=== PATIENT | female | born 1955 | race Caucasian/White ===

== ENCOUNTER → 2017-08-04 | Outpatient (CLI) | payer BC ==
--- NOTE | 2017-08-05 11:00 | MM ---
Reason for exam: screening (asymptomatic). Last mammogram was performed 2 years and 1 month ago. History: Patient is postmenopausal and had first child at age 32. Physical Findings: A clinical breast exam by your physician is recommended on an annual basis and results should be correlated with mammographic findings. MG Screening Mammo w CAD Bilateral CC and MLO view(s) were taken. Prior study comparison: June 25, 2015, mammogram, performed at [facility]. June 15, 2013, mammogram, performed at [facility]. The breast tissue is heterogeneously dense. This may lower the sensitivity of mammography. There is chronic nodularity bilaterally. There is no dominant lesion. No significant changes when compared with prior studies. ASSESSMENT: Benign, BI-RAD 2 RECOMMENDATION: Routine screening mammogram of both breasts in 1 year.
== END | disposition home or self-care (01) ==
LOC: RADMAMWWP 11:54
PROVIDERS: ATTEND Family Medicine
DX: Z12.31 Encounter for screening mammogram for malignant neoplasm of breast (principal)

== ENCOUNTER 2017-08-17 12:12 | Emergency (ER) | payer BC ==
[2017-08-17 12:26] VITALS: RESP 18
[2017-08-17] MEDS ORDERED: SODIUM CHLORIDE 0.9% 1,000 ML IV STA (13:23)
[2017-08-17] MEDS ORDERED: RX INFO: IV CONTRAST WAS GIVEN 1 EACH MISC MISCELLANE PRN (13:23)
--- NOTE | 2017-08-17 13:25 | ED ---
General Adult HPI - General Chief complaint: Abdominal Pain Stated complaint: Abd Pain-Diverticulitis Time Seen by Provider: 08/17/17 13:15 Source: patient, RN notes reviewed Mode of arrival: ambulatory Limitations: no limitations - History of Present Illness Initial comments: Patient 62-year-old female significant past medical history for diverticulitis, who presents emergency room today with a chief complaint of lower abdominal pain over the last 2 weeks. She does admit to increased fullness and bloating. Currently rates pain 6/10. States does feel somewhat similar diverticulitis that she's had in the past. She admits to a surgery for the diverticulitis approximate 10 years ago at [facility]. She denies any other complaints or symptoms at this time. States she's had small bowel movements. States she's been passing small amount of gas. Patient denies any recent fever, chills, shortness of breath, chest pain, back pain, abdominal pain, nausea or vomiting, numbness or tingling, dysuria or hematuria, constipation or diarrhea, headaches or visual changes, or any other complaints. - Related Data Home Medications Medication Instructions Recorded Confirmed Venlafaxine HCl ER [Effexor Xr] 150 mg PO DAILY 10/10/16 08/17/17 Cholecalciferol (Vitamin D3) 2,000 unit PO DAILY 08/17/17 08/17/17 [Vitamin D3] buPROPion HCL [Wellbutrin XL] 150 mg PO DAILY 08/17/17 08/17/17 Previous Rx's Medication Instructions Recorded Lactulose 10 gm PO DAILY 5 Days 08/17/17 Allergies Allergy/AdvReac Type Severity Reaction Status Date / Time erythromycin base Allergy Unknown Verified 08/17/17 12:53 minocycline [From Minocin] Allergy Unknown Verified 08/17/17 12:53 ofloxacin [From Floxin] Allergy Unknown Verified 08/17/17 12:53 Review of Systems ROS Statement: Those systems with pertinent positive or pertinent negative responses have been documented in the HPI. ROS Other: All systems not noted in ROS Statement are negative. Past Medical History Past Medical History: Sleep Apnea/CPAP/BIPAP Additional Past Medical History / Comment(s): Mitral regurgitation, diverticulitis, uses medical marijuana History of Any Multi-Drug Resistant Organisms: None Reported Past Surgical History: Bowel Resection, Cholecystectomy, Tonsillectomy Additional Past Surgical History / Comment(s): hernia repair, trigger thumb repair, deviated septum Past Psychological History: Depression Smoking Status: Never smoker Past Alcohol Use History: None Reported Past Drug Use History: Unable to Obtain, Marijuana General Exam - General Exam Comments Initial Comments: General: The patient is awake and alert, in no distress, and does not appear acutely ill. Eye: Pupils are equal, round and reactive to light, extra-ocular movements are intact. No nystagmus. There is normal conjunctiva bilaterally. No signs of icterus. Ears, nose, mouth and throat: There are moist mucous membranes and no oral lesions. Neck: The neck is supple, there is no tenderness or JVD. Cardiovascular: There is a regular rate and rhythm. No murmur, rub or gallop is appreciated. Respiratory: Lungs are clear to auscultation, respirations are non-labored, breath sounds are equal. No wheezes, stridor, rales, or rhonchi. Gastrointestinal: Normal appearance abdomen. Normal bowel sounds. Soft on palpation. Patient does have tenderness mildly throughout the abdomen. No rebound tenderness. No Guarding. No CVA tenderness. Musculoskeletal: Normal ROM, no tenderness. Strength 5/5. Sensation intact. Pulses equal bilaterally 2+. Neurological: A&O x 3. CN II-XII intact, There are no obvious motor or sensory deficits. Coordination appears grossly intact. Speech is normal. Skin: Skin is warm and dry and no rashes or lesions are noted. Psychiatric: Cooperative, appropriate mood & affect, normal judgment. Limitations: no limitations Course Vital Signs 08/17/17 08/17/17 12:23 13:25 Temperature 98.4 F Pulse Rate 88 77 Respiratory 18 18 Rate Blood Pressure 123/83 135/68 O2 Sat by Pulse 98 98 Oximetry Medical Decision Making - Medical Decision Making Case discussed in detail with attending physician Dr. Gore. Patient reexamined at this time shows no signs of distress resting comfortably. Doesn' t patient about starting antibiotics cover possible infection. At this time she states that she would like to hold. We will place patient on laxative to help with some discomfort with bowel movements. Patient given magnesium citrate here in emergency room discharged home with lactulose use if needed. Advised to follow-up the family doctor also her surgeon and will also be given GI as possible follow-up over the next 2 days. Advised return for fever or increase worsen symptoms. Patient states understanding and is in agreement. - Lab Data Result diagrams: 08/17/17 13:09 08/17/17 13:09 Lab Results 08/17/17 08/17/17 08/17/17 Range/Units 13:09 13:09 13:09 WBC 7.0 (3.8-10.6) k/uL RBC 4.29 (3.80-5.40) m/uL Hgb 13.5 (11.4-16.0) gm/dL Hct 42.1 (34.0-46.0) % MCV 98.0 (80.0-100.0) fL MCH 31.4 (25.0-35.0) pg MCHC 32.1 (31.0-37.0) g/dL RDW 13.7 (11.5-15.5) % Plt Count 253 (150-450) k/uL Neutrophils % 54 % Lymphocytes % 33 % Monocytes % 6 % Eosinophils % 2 % Basophils % 1 % Neutrophils # 3.8 (1.3-7.7) k/uL Lymphocytes # 2.3 (1.0-4.8) k/uL Monocytes # 0.4 (0-1.0) k/uL Eosinophils # 0.2 (0-0.7) k/uL Basophils # 0.1 (0-0.2) k/uL PT 9.8 (9.0-12.0) sec INR 1.0 (<1.2) APTT 25.9 (22.0-30.0) sec Sodium 140 (137-145) mmol/L Potassium 4.7 (3.5-5.1) mmol/L Chloride 106 (98-107) mmol/L Carbon Dioxide 25 (22-30) mmol/L Anion Gap 9 mmol/L BUN 15 (7-17) mg/dL Creatinine 0.70 (0.52-1.04) mg/dL Est GFR (MDRD) Af Amer >60 (>60 ml/min/1.73 sqM) Est GFR (MDRD) Non-Af >60 (>60 ml/min/1.73 sqM) Glucose 85 (74-99) mg/dL Calcium 9.7 (8.4-10.2) mg/dL Total Bilirubin 0.8 (0.2-1.3) mg/dL AST 28 (14-36) U/L ALT 48 (9-52) U/L Alkaline Phosphatase 131 H (38-126) U/L Total Protein 7.0 (6.3-8.2) g/dL Albumin 4.3 (3.5-5.0) g/dL Disposition Clinical Impression: Abdominal pain Disposition: HOME SELF-CARE Condition: Good Instructions: Abdominal Pain (ED) Additional Instructions: Please use medication as discussed. Please follow-up with GI/surgeonfamily doctor in the next 2 days of symptoms have not improved. Please return to emergency room if the symptoms increase or worsen or for any other concerns. Prescriptions: Lactulose 10 gm PO DAILY 5 Days Referrals: None,Stated [Primary Care Provider] - 1-2 days Joanne Avila MD [STAFF PHYSICIAN] - 1-2 days Xiomy Jacinto MD [STAFF PHYSICIAN] - 1-2 days Time of Disposition: 14:41
[2017-08-17 13:44] LABS: Basophils # (A) 0.1 k/uL (0-0.2); Basophils % (A) 1 %; CH 32.6; CHCM 33.4; Eosinophils # (A) 0.2 k/uL (0-0.7); Eosinophils % (A) 2 %; HCT 42.1 % (34.0-46.0); HDW 2.11; HGB 13.5 gm/dL (11.4-16.0); Luc # (Auto) 0.28; Luc % (Auto) 4; Lymphocytes # (A) 2.3 k/uL (1.0-4.8); Lymphocytes % (A) 33 %; MCH 31.4 pg (25.0-35.0); MCHC 32.1 g/dL (31.0-37.0); Mean Platelet Volume 8.2; Monocytes # (A) 0.4 k/uL (0-1.0); Monocytes % (A) 6 %; Neutrophils # (A) 3.8 k/uL (1.3-7.7); Neutrophils % (A) 54 %; RBC 4.29 m/uL (3.80-5.40); RDW 13.7 % (11.5-15.5); WBC (Perox) 7.04
[2017-08-17 13:53] LABS: ALT 48 U/L (9-52); AST 28 U/L (14-36); Alkaline Phosphatase 131 U/L (38-126); Anion Gap 9 mmol/L; Blood Urea Nitrogen 15 mg/dL (7-17); Calcium 9.7 mg/dL (8.4-10.2); Carbon Dioxide 25 mmol/L (22-30); Chloride 106 mmol/L (98-107); Glucose 85 mg/dL (74-99); Non-African American GFR(MDRD) >60 (>60 ml/min/1.73 sqM); Potassium 4.7 mmol/L (3.5-5.1); Sodium 140 mmol/L (137-145); Total Bilirubin 0.8 mg/dL (0.2-1.3)
[2017-08-17 13:58] LABS: Partial Thromboplastin Time 25.9 sec (22.0-30.0); Prothrombin Time 9.8 sec (9.0-12.0)
--- NOTE | 2017-08-17 14:13 | CT ---
EXAMINATION TYPE: CT abdomen pelvis w con DATE OF EXAM: 08/17/2017 COMPARISON: NONE HISTORY: Generalized pain CT DLP: 894.2 mGycm Automated exposure control for dose reduction was used. TECHNIQUE: Helical acquisition of images from the lung bases through the pelvis have been completed. CONTRAST: Performed without Oral Contrast and with IV Contrast, patient injected with 100 mL of Omnipaque 300. FINDINGS: Suspect postoperative change along the anterior abdominal wall, correlate for appropriate h istory. LUNG BASES: No significant abnormality is appreciated. AORTA: No significant abnormality is appreciated. LIVER/GB: Patient is post cholecystectomy. Liver shows no mass. There is some prominence of the intra hepatic and extrahepatic biliary ducts likely due to postcholecystectomy change. PANCREAS: No significant abnormality is seen. SPLEEN: No significant abnormality is seen. ADRENALS: No significant abnormality is seen. KIDNEYS: No significant abnormality is seen. REPRODUCTIVE ORGANS: No significant abnormality is seen BOWEL: Postop change noted at the sigmoid colon. There is diverticular change present within the sig moid, descending colon. FREE AIR: No Free Air visible. ASCITES: None visible. PELVIC ADENOPATHY: None visualized. RETROPERITONEAL ADENOPATHY: No Retroperitoneal Adenopathy visible. URINARY BLADDER: No significant abnormality is seen. OSSEOUS STRUCTURES: There is a spinal curvature. Degenerative disc changes, facet arthropathy noted at the lower lumbar spine.. IMPRESSION: POSTOP CHANGES. Diverticulosis and additional findings above.
[2017-08-17] MEDS ORDERED: MAGNESIUM CITRATE 296 ML BOTTLE PO ONE (14:41)
[2017-08-17 19:17] VITALS: BP 127/71; PULSE 99; TEMP 97.8
== END 2017-08-17 14:51 | disposition home or self-care (01) ==
LOC: EC 12:12
DX: R10.30 Lower abdominal pain, unspecified (principal); F32.9 Major depressive disorder, single episode, unspecified; Z87.19 Personal history of other diseases of the digestive system; Z90.49 Acquired absence of other specified parts of digestive tract; Z98.890 Other specified postprocedural states; Z88.1 Allergy status to other antibiotic agents; Z88.8 Allergy status to other drugs, medicaments and biological substances; Z79.899 Other long term (current) drug therapy
CPT/HCPCS: 99284 ×2; 96360 ×2; 96361 ×6; 36415; 80053; 85025; 85610; 85730; 87040; 74177; Q9967

== ENCOUNTER 2017-11-17 12:57 | Day surgery (SDC) | payer BC ==
[2017-11-12 16:36] VITALS: BMI 29.6
[~2017-11-17 12:57] MED LIST: LACTATED RINGERS 1,000 ML IV SCH; LIDOCAINE 1% 20 ML VIAL (10MG/ML) FOR IV START INTRADERMA PRN
[2017-11-17 13:24] VITALS: RESP 18; TEMP 97.8
[2017-11-17] MEDS ORDERED: LACTATED RINGERS 1,000 ML IV ONE (13:25)
[2017-11-17] MEDS ORDERED: PROPOFOL 10 MG/ML 20 ML VIAL IV ONE (14:14)
--- NOTE | 2017-11-17 14:52 | P.PCN ---
Date of Procedure: 11/17/17 Procedure(s) Performed: Procedure: Total colonoscopy. Preoperative diagnosis: Change in bowel habits. Postoperative diagnosis: 1. Significant diverticulosis with no evidence of acute diverticulitis or strictures. 2. Low-grade internal hemorrhoids without bleeding at the time of this exam. Preparation: HalfLytely prep. Sedation: Was provided by anesthesia. Brief clinical history: The patient is a 62-year-old female who is scheduled for this evaluation because of change in bowel habits in the form of constipation which has been progressing over the last year or two. The patient has history of complicated diverticular disease and had segmental resection in 2006. She has intermittent rectal bleeding. Procedure: With the patient on her left lateral decubitus position and after informed consent and adequate sedation, the perianal area was inspected and it did not show any fissures or fistulas. There were no masses felt on digital rectal examination. The Olympus CFQ 160L video colonoscope was then inserted in the rectum in the usual fashion and advanced to the cecum. There was significant diverticular disease with multiple diverticular orifices seen scattered along the length of the bowel including the right colon with no evidence of acute diverticulitis. There appeared to have been a prior segmental resection in the distal sigmoid area but there was no strictures or other pathology. The mucosa appeared healthy. No polyps or tumors were seen. I retroflexed the endoscope in the rectum before the endoscope was withdrawn. Low-grade internal hemorrhoids were noted with no evidence of bleeding. The patient tolerated the procedure well. Plan: The patient was reassured. Discussed dietary measures. The patient would be establishing with a new primary care physician in this area and we will forward this report as soon as she identifies a new primary care physician. Future screening colonoscopy in 10 years.
[2017-11-17 15:08] VITALS: BP 116/70; PULSE 62
== END 2017-11-17 15:22 | disposition home or self-care (01) ==
LOC: ORWHC2ENDO 12:57
DX: K57.30 Diverticulosis of large intestine without perforation or abscess without bleeding (principal); K64.8 Other hemorrhoids; K59.00 Constipation, unspecified; Z87.19 Personal history of other diseases of the digestive system; Z90.49 Acquired absence of other specified parts of digestive tract; I34.0 Nonrheumatic mitral (valve) insufficiency; F41.9 Anxiety disorder, unspecified; F32.9 Major depressive disorder, single episode, unspecified; G47.33 Obstructive sleep apnea (adult) (pediatric); Z79.899 Other long term (current) drug therapy; Z88.1 Allergy status to other antibiotic agents
CPT/HCPCS: 45378; J2704

== ENCOUNTER → 2018-09-15 | Outpatient (CLI) | payer BC ==
--- NOTE | 2018-09-15 08:52 | US ---
EXAMINATION TYPE: US abdomen limited DATE OF EXAM: 09/15/2018 COMPARISON: CT CLINICAL HISTORY: Low Back Pain M54.5,R31.9 Hematuria. Pt states ABD pain, hematuria, previous Johan EXAM MEASUREMENTS: Liver Length: 16.0 cm CBD: 1.2 cm Right Kidney: 10.2 x 4.0 x 4.9 cm Pancreas: 3mm pancreatic duct visualized, tail obscured by overlying bowel gas Liver: wnl Gallbladder: Surgically absent Evidence for sonographic Sim's sign: No CBD: Dilated for post johan Right Kidney: wnl IMPRESSION: 1. Cholecystectomy with postoperative dilatation of the common bile duct.
== END | disposition home or self-care (01) ==
LOC: RADUSWWP 07:33
PROVIDERS: ATTEND Family Medicine
DX: K83.8 Other specified diseases of biliary tract (principal); Z90.49 Acquired absence of other specified parts of digestive tract
CPT/HCPCS: 76705

== ENCOUNTER → 2018-10-15 | Outpatient (CLI) | payer BC ==
--- NOTE | 2018-10-15 09:45 | US ---
EXAMINATION TYPE: US abdomen complete DATE OF EXAM: 10/15/2018 COMPARISON: NONE CLINICAL HISTORY: R319 HEMATURIA,M545 LOW BACK PAIN. EXAM MEASUREMENTS: Liver Length: 14.6 cm Gallbladder Wall: Surgically absent CBD: 0.4 cm Spleen: 10.8 cm Right Kidney: 10.6 x 4.6 x 4.6 cm Left Kidney: 10.3 x 5.4 x 4.5 cm Pancreas: head partially obscured by bowel gas, tail obscured by bowel gas, prominent duct again isael suring 3mm. Liver: wnl Gallbladder: Surgically absent CBD: wnl Spleen: somewhat limited visualization Right Kidney: probable cyst upper measuring 0.8 x 0.7 x 0.8cm, Left Kidney: Superior pole obscured by bowel gas, otherwise wnl Upper IVC: wnl Abd Aorta: bifurcation obscured by bowel gas The liver is homogenous. The intrahepatic portion of the IVC and proximal abdominal aorta are within normal limits. There is no evidence of cholelithiasis. Common bile duct is unremarkable. The visu alized portions of the pancreas are homogenous. The spleen is unremarkable. Kidneys are symmetric a nd free of hydronephrosis. IMPRESSION: 1. Pancreatic ductal prominence therefore further evaluation with either CT abdomen pancreatic mass p rotocol or MRCP are recommended as this was not appreciated on the CT abdomen pelvis dated 08/17/2017. 2. Possible small renal sinus cyst on the right measuring up to 8 mm.
== END | disposition home or self-care (01) ==
LOC: RADUSWWP 07:32
PROVIDERS: ATTEND Family Medicine
DX: R31.9 Hematuria, unspecified (principal)
CPT/HCPCS: 76700

== ENCOUNTER 2018-10-26 07:19 | Observation (INO) | payer BC ==
[2018-10-26] MEDS ORDERED: SODIUM CHLORIDE 0.9% 1,000 ML IV STA ×2 (07:46)
[2018-10-26] MEDS ORDERED: ONDANSETRON 4 MG/2 ML VIAL IVP STA (07:46)
[2018-10-26] MEDS ORDERED: MORPHINE SULFATE 4 MG/ML SYRINGE IV STA (07:46)
[2018-10-26 08:28] LABS: Basophils % (A) 0 %; Eosinophils # (A) 0.1 k/uL (0-0.7); Eosinophils % (A) 1 %; HCT 40.7 % (34.0-46.0); HGB 13.9 gm/dL (11.4-16.0); Lymphocytes # (A) 1.7 k/uL (1.0-4.8); Lymphocytes % (A) 15 %; MCH 31.7 pg (25.0-35.0); MCHC 34.2 g/dL (31.0-37.0); MCV 92.7 fL (80.0-100.0); Mean Platelet Volume 7.3; Monocytes # (A) 0.6 k/uL (0-1.0); Monocytes % (A) 5 %; Neutrophils # (A) 8.4 k/uL (1.3-7.7); Neutrophils % (A) 76 %; Platelet Count 251 k/uL (150-450); RBC 4.39 m/uL (3.80-5.40); RDW 12.6 % (11.5-15.5); WBC 11.1 k/uL (3.8-10.6)
[2018-10-26 08:44] LABS: ALT 51 U/L (9-52); AST 31 U/L (14-36); Albumin 4.2 g/dL (3.5-5.0); Alkaline Phosphatase 129 U/L (38-126); Amylase 36 U/L (30-110); Anion Gap 9 mmol/L; Blood Urea Nitrogen 16 mg/dL (7-17); Calcium 10.5 mg/dL (8.4-10.2); Carbon Dioxide 23 mmol/L (22-30); Chloride 107 mmol/L (98-107); Glucose 104 mg/dL (74-99); Lipase 54 U/L (23-300); Sodium 139 mmol/L (137-145); Total Bilirubin 1.4 mg/dL (0.2-1.3)
[2018-10-26] MEDS ORDERED: MORPHINE SULFATE 4 MG/ML SYRINGE IVP STA (09:13)
--- NOTE | 2018-10-26 09:37 | CT ---
EXAMINATION TYPE: CT abdomen pelvis w con DATE OF EXAM: 10/26/2018 COMPARISON: 08/17/2017 HISTORY: 63-year-old female with abdominal pain and diarrhea TECHNIQUE: Contiguous axial scanning of the abdomen and pelvis following administration of 100 ml Iso lorna 300 IV contrast. Delayed images through the kidneys and coronal/sagittal reconstructions perform ed. CT DLP: 1036.8 mGycm Automated exposure control for dose reduction was used. FINDINGS: Heart normal size without pericardial effusion. Lung bases clear without pleural effusion. Cholecystectomy clips are present. Dilatation of bile duct up to 1.3 cm likely due to postcholecystec shahla status, coronal image 40. No focal liver lesion. Adrenal glands, kidneys, spleen are within normal limits. Pancreas mildly atrophic with mild dilatation of the main pancreatic duct at the level of the pancrea tic head and neck up to 4 mm. No dilated small bowel, free fluid, or free air. Prominent fluid-filled small bowel loops in the mid to lower abdomen and pelvis with some liquid stoo l in the right hemicolon. There is left-sided colonic diverticulosis with prior surgical resection and re-anastomosis along the mid sigmoid colon. No pericolonic inflammatory change. Normal appendix. No mesenteric or retroperitoneal lymphadenopathy. Bladder is urine distended. Pelvic phleboliths. Uterus and small ovaries are visualized. No abnormal fluid collection in the pelvis or pelvic lymphadenopathy. Bones: Mild degenerative changes at the hips and SI joints. Degenerative identified in curvature in t he visualized thoracolumbar spine. Facet arthropathy throughout. IMPRESSION: 1. PROMINENT FLUID-FILLED SMALL BOWEL LOOPS IN THE MID TO LOWER ABDOMEN AND PELVIS WITH SOME LIQUID S TOOL IN THE RIGHT SIDE OF THE COLON. FINDINGS SUGGEST ENTERITIS. 2. LEFT-SIDED COLONIC DIVERTICULOSIS WITHOUT EVIDENCE FOR ACUTE DIVERTICULITIS. PRIOR BOWEL RESECTION AND REANASTOMOSIS AT THE MID SIGMOID. 3. THE BILE DUCT IS DILATED UP TO 1.3 CM. THIS MAY BE SECONDARY TO POSTCHOLECYSTECTOMY STATUS BUT EDUARDO EARS SLIGHTLY INCREASED FROM 08/17/2017. CORRELATE WITH ALKALINE PHOSPHATASE AND BILIRUBIN LEVELS TO E XCLUDE BILIARY OBSTRUCTION. 4. MILD DILATATION OF THE MAIN PANCREATIC DUCT IN THE PANCREATIC HEAD AND NECK REGION UP TO 4 MM ALSO APPEARS INCREASED FROM 2017. NO OBSTRUCTING PANCREATIC MASS IS IDENTIFIED. 6 MONTH FOLLOW-UP CT TO [facility].
--- NOTE | 2018-10-26 10:33 | ED ---
Abdominal Pain HPI - General Chief Complaint: Abdominal Pain Stated Complaint: Diarrhea, sweats, hasn't been eating. Time Seen by Provider: 10/26/18 07:40 Source: patient, RN notes reviewed, old records reviewed Mode of arrival: ambulatory Limitations: no limitations - History of Present Illness Initial Comments: This is a 63-year-old female the ER for evaluation of abdominal pain nausea and diarrhea. Patient states she has history of diverticulitis is is not the same. She does have history of multiple abdominal surgeries, does not have a surgeon in the area she is falling upper GI in the area. No recent fevers. No significant travel history or known family members with similar complaints. Patient is unable specific medication for pain or vomiting. No modifying factors for symptoms. Patient very emotional upon questioning, states she is very tired, sick of being nauseous sick of not feeling well. Sick pain. Very depressed MD Complaint: abdominal pain -: days(s), week(s) Location: diffuse, periumbilical Radiation: epigastric Migration to: no migration Severity scale (1-10): 3 Quality: cramping, aching Consistency: constant Improves With: nothing Worsens With: bowel movement Associated Symptoms: nausea, vomiting, diarrhea - Related Data Home Medications Medication Instructions Recorded Confirmed Cholecalciferol (Vitamin D3) 4,000 unit PO DAILY 08/17/17 10/26/18 [Vitamin D3] ALPRAZolam [Xanax] 0.5 mg PO DAILY PRN 10/26/18 10/26/18 Calcium Carbonate [Tums] 500 mg PO TID PRN 10/26/18 10/26/18 Venlafaxine HCl [Effexor XR] 75 mg PO DAILY 10/26/18 10/26/18 Allergies Allergy/AdvReac Type Severity Reaction Status Date / Time erythromycin base Allergy Unknown Verified 10/26/18 08:18 minocycline [From Minocin] Allergy Unknown Verified 10/26/18 08:18 ofloxacin [From Floxin] Allergy Unknown Verified 10/26/18 08:18 Review of Systems ROS Statement: Those systems with pertinent positive or pertinent negative responses have been documented in the HPI. ROS Other: All systems not noted in ROS Statement are negative. Past Medical History Past Medical History: Cancer, Sleep Apnea/CPAP/BIPAP Additional Past Medical History / Comment(s): LEFT LEG CA CYST, Mitral regurgitation, diverticulitis, cyst on right kidney History of Any Multi-Drug Resistant Organisms: None Reported Past Surgical History: Bowel Resection, Cholecystectomy, Tonsillectomy Additional Past Surgical History / Comment(s): REMOVAL OF CA CYST LEFT LEG, STATES WAS TOLD "BLOOD TAKES A LONG TIME TO CLOT" BROTHER HAS IT ALSO, hernia repair, trigger thumb repair, deviated septum Additional Past Anesthesia/Blood Transfusion Reaction / Comment(s): STATES WITH LAST COLONOSCOPY, WAS VERY PAINFUL WITH TWILIGHT SEDATION. STATES WAS TOLD "BLOOD TAKES A LONG TIME TO CLOT" Past Psychological History: Depression Smoking Status: Former smoker Past Alcohol Use History: None Reported Past Drug Use History: Marijuana - Past Family History Mother Family Medical History: Cancer Additional Family Medical History / Comment(s): PANCREAS Father Family Medical History: CVA/TIA General Exam Limitations: no limitations General appearance: alert, in no apparent distress Head exam: Present: atraumatic, normocephalic, normal inspection Eye exam: Present: normal appearance, PERRL, EOMI. Absent: scleral icterus, conjunctival injection, periorbital swelling ENT exam: Present: normal exam, mucous membranes moist Neck exam: Present: normal inspection. Absent: tenderness, meningismus, lymphadenopathy Respiratory exam: Present: normal lung sounds bilaterally. Absent: respiratory distress, wheezes, rales, rhonchi, stridor Cardiovascular Exam: Present: regular rate, normal rhythm, normal heart sounds. Absent: systolic murmur, diastolic murmur, rubs, gallop, clicks GI/Abdominal exam: Present: soft, normal bowel sounds. Absent: distended, tenderness, guarding, rebound, rigid Extremities exam: Present: normal inspection, full ROM, normal capillary refill. Absent: tenderness, pedal edema, joint swelling, calf tenderness Back exam: Present: normal inspection Neurological exam: Present: alert, oriented X3, CN II-XII intact Psychiatric exam: Present: normal affect, normal mood Skin exam: Present: warm, dry, intact, normal color. Absent: rash Course Vital Signs 10/26/18 10/26/18 07:21 09:17 Temperature 98.3 F 98.6 F Pulse Rate 97 86 Respiratory 18 18 Rate Blood Pressure 139/85 151/77 O2 Sat by Pulse 99 100 Oximetry - Reevaluation(s) Reevaluation #1: 10/26/18 10:31 medical record is reviewed Reevaluation #2: 10/26/18 10:31 paged vacation planner, spoke with Rosa re admission, agreeable Reevaluation #3: 10/26/18 10:32 pain is improved Medical Decision Making - Medical Decision Making 63 female the ER with persistent and chronic abdominal pain, concern for her pancreas, patient is following up with GI and Family doctor as an outpatient with no acute diagnosis. CT suspicious for pancreatic duct dilated patient,, bile duct dilation, patient be admitted for GI evaluation - Lab Data Result diagrams: 10/26/18 08:08 10/26/18 08:08 Lab Results 10/26/18 10/26/18 10/26/18 Range/Units 08:08 08:08 09:12 WBC 11.1 H (3.8-10.6) k/uL RBC 4.39 (3.80-5.40) m/uL Hgb 13.9 (11.4-16.0) gm/dL Hct 40.7 (34.0-46.0) % MCV 92.7 (80.0-100.0) fL MCH 31.7 (25.0-35.0) pg MCHC 34.2 (31.0-37.0) g/dL RDW 12.6 (11.5-15.5) % Plt Count 251 (150-450) k/uL Neutrophils % 76 % Lymphocytes % 15 % Monocytes % 5 % Eosinophils % 1 % Basophils % 0 % Neutrophils # 8.4 H (1.3-7.7) k/uL Lymphocytes # 1.7 (1.0-4.8) k/uL Monocytes # 0.6 (0-1.0) k/uL Eosinophils # 0.1 (0-0.7) k/uL Basophils # 0.0 (0-0.2) k/uL Sodium 139 (137-145) mmol/L Potassium 4.0 (3.5-5.1) mmol/L Chloride 107 (98-107) mmol/L Carbon Dioxide 23 (22-30) mmol/L Anion Gap 9 mmol/L BUN 16 (7-17) mg/dL Creatinine 0.63 (0.52-1.04) mg/dL Est GFR (CKD-EPI)AfAm >90 (>60 ml/min/1.73 sqM) Est GFR (CKD-EPI)NonAf >90 (>60 ml/min/1.73 sqM) Glucose 104 H (74-99) mg/dL Calcium 10.5 H (8.4-10.2) mg/dL Total Bilirubin 1.4 H (0.2-1.3) mg/dL AST 31 (14-36) U/L ALT 51 (9-52) U/L Alkaline Phosphatase 129 H (38-126) U/L Total Protein 7.0 (6.3-8.2) g/dL Albumin 4.2 (3.5-5.0) g/dL Amylase 36 (30-110) U/L Lipase 54 (23-300) U/L Urine Color Light Yellow Urine Appearance Clear (Clear) Urine pH 7.0 (5.0-8.0) Ur Specific Terrell 1.016 (1.001-1.035) Urine Protein Negative (Negative) Urine Glucose (UA) Negative (Negative) Urine Blood Trace H (Negative) Urine Nitrite Negative (Negative) Urine Bilirubin Negative (Negative) Urine Urobilinogen <2.0 (<2.0) mg/dL Ur Leukocyte Esterase Moderate H (Negative) Urine RBC 3 (0-5) /hpf Urine WBC 9 H (0-5) /hpf Ur Squamous Epith Cells <1 (0-4) /hpf Urine Bacteria Rare H (None) /hpf Urine Mucus Rare H (None) /hpf - Radiology Data Radiology results: report reviewed (CT abd pelvis is negative for acute disease) , image reviewed Disposition Clinical Impression: Abdominal pain Disposition: ADMITTED IP TO THIS HOSP Condition: Fair Instructions: Abdominal Pain (ED) Is patient prescribed a controlled substance at d/c from ED?: No Referrals: Jet Daniel DO [Primary Care Provider] - 1-2 days
[2018-10-26 10:42] LABS: Appearance,Urine Clear (Clear); Bacteria,Urine Rare /hpf; Bilirubin,Urine Negative (Negative); Blood,Urine Trace (Negative); Color,Urine Light Yellow; Glucose,Urine (UA) Negative (Negative); Ketones,Urine 2+ (Negative); Leukocyte Esterase,Urine Moderate (Negative); Mucus,Urine Rare /hpf; Nitrite,Urine Negative (Negative); Protein,Urine Negative (Negative); RBC,Urine 3 /hpf (0-5); Specific Gravity,Urine 1.016 (1.001-1.035); Squamous Epithelial Cell,Urine <1 /hpf (0-4); Urobilinogen,Urine <2.0 mg/dL (<2.0); WBC,Urine 9 /hpf (0-5)
[2018-10-26] MEDS ORDERED: MORPHINE SULFATE 4 MG/ML SYRINGE IVP PRN (10:45)
[2018-10-26] MEDS ORDERED: PANTOPRAZOLE 40 MG/10 ML VIAL IVP STA (10:45)
[2018-10-26] MEDS: ONDANSETRON 4 MG/2 ML VIAL IVP PRN ×2 (11:36→19:02)
[2018-10-26] MEDS ORDERED: CALCIUM CARBONATE 500 MG CHEWABLE PO PRN (14:23)
[2018-10-26] MEDS ORDERED: ALPRAZolam 0.5 MG TAB PO PRN (14:23)
[2018-10-26] MEDS: METOCLOPRAMIDE 5 MG/ML 2 ML VIAL IVP PRN ×2 (15:38→21:38)
[2018-10-26] MEDS: VENLAFAXINE HCL ER 75 MG CAP PO SCH (15:39)
[2018-10-26] MEDS: CHOLECALCIFEROL 1,000 UNIT TAB PO SCH (15:39)
[2018-10-26] MEDS ORDERED: SODIUM CHLORIDE 0.9% 1,000 ML IV SCH (16:15)
--- NOTE | 2018-10-26 20:44 | HP ---
HISTORY AND PHYSICAL CHIEF COMPLAINTS: Abdominal pain and diarrhea. HISTORY OF PRESENT ILLNESS: This 63-year-old woman with a past medical history of multiple medical problems, including history of sleep apnea, history of chronic intermittent abdominal pain over the past, history of diverticulitis, history of left leg cancerous cyst, history of mitral regurgitation, history of right renal cyst, bowel resection, cholecystectomy, history of anxiety, depression, being followed by Dr. Daniel in the outpatient setting, had sudden onset of abdominal pain which was felt mostly in the upper abdomen. The patient also had multiple episodes of nausea, unable to keep anything down. She also had multiple episodes of diarrhea which was watery, up to 30 times total. The patient came to [facility] and was admitted for further evaluation and treatment. The initial evaluation showed white count of 11.1, calcium 10.5. Patient was dehydrated. The patient has been admitted for evaluation and treatment. Otherwise, a CT scan of abdomen and pelvis was also done which showed prominent fluid- filled small bowel loops suggestive of ileus or enteritis and left-sided colonic diverticulosis without any evidence of acute diverticulitis. Bile duct was dilated, possibly secondary to cholecystectomy. Mild dilation of the pancreatic duct was also noted. No obstruction or pancreatic lesion was found. A follow-up CT scan in 6 months is recommended at this time. There is no history of any fever, rigor or chills. No history of headache, loss of consciousness, seizures. PAST MEDICAL HISTORY: 1. History of sleep apnea. 2. History of chronic intermittent abdominal pain. 3. History of left cancerous cyst. 4. Mitral valve regurgitation. 5. Cholecystectomy. 6. History of bowel resection. 7. History of anxiety, depression. HOME MEDICATIONS: 1. Effexor XR 75 mg p.o. daily. 2. Vitamin D3 4000 units. 3. Tums 500 mg t.i.d. p.r.n. 4. Xanax 0.5 daily p.r.n. ALLERGIES: 1. ERYTHROMYCIN. 2. MINOCYCLINE. 3. OFLOXACIN. FAMILY HISTORY: History of pancreatic cancer. SOCIAL HISTORY: History of THC, history of smoking. REVIEW OF SYSTEMS: ENT: No diminished hearing. No diminished vision. CARDIOVASCULAR SYSTEM: No angina, palpitations. RESPIRATORY SYSTEM: As mentioned earlier. GI: As mentioned earlier. : No dysuria or retention. NERVOUS SYSTEM: No numbness, weakness. ALLERGY/IMMUNOLOGY: No asthma, hayfever. MUSCULOSKELETAL: As mentioned earlier. HEMATOLOGY/ONCOLOGY: No history of anemia. ENDOCRINE: No history of diabetes, hypothyroidism. CONSTITUTIONAL: As mentioned earlier. DERMATOLOGY: Negative. RHEUMATOLOGY: Negative. PSYCHIATRY: As mentioned earlier. PHYSICAL EXAMINATION: Patient alert and oriented x3. Pulse 73, blood pressure 128/70, respirations 18, temperature 98.1, pulse ox 98% on room air. HEENT: Conjunctivae normal. Oral mucosa moist. NECK: No jugular venous distention. No carotid bruit. No lymph node enlargement. CARDIOVASCULAR SYSTEM: S1, S2 muffled. No S3. No S4. RESPIRATORY SYSTEM: Breath sounds diminished at the bases. A few scattered rhonchi. No crackles. ABDOMEN: Soft. Mild diffuse tenderness. No guarding. No rigidity. No mass palpable. No ascites. Bowel sounds present. LEGS: No edema. No swelling. NERVOUS SYSTEM: Higher functions as mentioned earlier. Moves all 4 limbs. No focal motor or sensory deficit. LYMPHATICS: No lymph node palpable in neck, axillae or groin. SKIN: No ulcer, rash, bleeding. LABS: WBC 11.1, hemoglobin 13.9, calcium 10.5. Bilirubin is 1.4, alkaline phosphatase 129. ASSESSMENT: 1. Abdominal pain, nausea, vomiting, diarrhea; possible acute gastroenteritis. 2. Increased white count. 3. Increased calcium. 4. Dehydration. 5. History of sleep apnea. 6. Chronic intermittent abdominal pain. 7. History of diverticulitis. 8. Diverticulosis on the current CT scan with no evidence of diverticulitis. 9. Mitral valve regurgitation. 10.Bowel resection. 11.Cholecystectomy. 12.History of degenerative joint disease. 13.History of anxiety, depression. 14.History of nicotine dependence. RECOMMENDATIONS AND DISCUSSION: In this 63-year-old woman who presented with multiple complex medical issues, we will monitor the patient closely, continue the current medication, continue symptomatic treatment. Will initiate n.p.o. except medications currently and obtain gastroenterology consultation. The patient is improving. Patient's diet may be initiated with a clear liquid diet. Otherwise, symptomatic treatment will be provided. Continue to monitor. Prognosis guarded. Further recommendations to follow. DVT prophylaxis. Proton pump inhibitors. A copy of this dictation is being forwarded to Dr. Daniel, who is the primary physician. MMODL / IJN: [id number] /
--- NOTE | 2018-10-26 20:58 | P.CONS ---
History of Present Illness - Reason for Consult Consult date: 10/26/18 Abdominal pain and nausea and diarrhea Requesting physician: Ciera Agarwal - Chief Complaint Abdominal pain, nausea, diarrhea - History of Present Illness The patient is a 63-year-old female with a medical history significant for obstructive sleep apnea and diverticulosis who presents to the hospital with complaints of abdominal pain and diarrhea. Per the patient at baseline she is to 3 bowel movements daily, however she reports innumerable loose watery bowel movements, stating that she had at least 20 bowel movements. She reports urgency and liquid stool. She denies any sick contacts, recent travel, recent changes in her medications, recent antibiotic exposure or other triggers. She denies any prior history of episodes as severe as this. She reports associated chills, nausea and dry heaving. He reports abdominal pain associated with the diarrhea described as diffuse across the abdomen, constant and cramping in nature. Since being admitted to the hospital patient has had no further bowel movements. Her last colonoscopy was in November 2017 and was significant only for diverticular disease. She does not believe she had an upper endoscopy in the past. After admission to the hospital she had a computed tomography scan which showed fluid-filled small bowel with liquid in the right colon suggestive of a possible enteritis as well as left-sided diverticulosis. The patient also had findings of prior cholecystectomy and a slightly increased dilation of the pancreatic duct compared to prior studies. Stool studies have been ordered but not performed as the patient has not had any further stool. She denies any hematemesis, hematochezia or melena but does report a small amount of blood with wiping with one of the bowel movements after having multiple episodes of diarrhea which she attributes to hemorrhoids. Review of Systems REVIEW OF SYSTEMS: CARDIO: Denies any chest pain or palpitations. PULMONARY: Denies any shortness of breath or wheezing. GENITOURINARY: No dysuria or hematuria. MUSCULOSKELETAL: No weakness reported. SKIN: Denies any new rashes or lesions, jaundice or pallor. PSYCHIATRIC: No suicidal ideation. NEUROLOGY: Denies headache, denies any new focal deficits. EARS: No tinnitus, discharge or new hearing loss. NOSE: No discharge or congestion. EYES: No pain in eyes or change in vision. CONSTITUTIONAL: No recent weight loss. No fever, or night sweats but does report chills in association with the episodes of diarrhea. Past Medical History Past Medical History: Cancer, Sleep Apnea/CPAP/BIPAP Additional Past Medical History / Comment(s): Chronic intermittent abdominal pain over past year, diverticulitis, L leg cancerous cyst removed, mitral valve regurgitation, R renal cyst, pt states her blood takes longer to clot and so does her older brother. History of Any Multi-Drug Resistant Organisms: None Reported Past Surgical History: Bowel Resection, Cholecystectomy, Hernia Repair, Orthopedic Surgery, Tonsillectomy Additional Past Surgical History / Comment(s): bowel resection d/t diverticulitis, colonoscopy, L leg cancerous cyst removed, colonoscopy, abdominal hernia repair, L thumb trigger finger, deviated septum. Past Anesthesia/Blood Transfusion Reactions: Motion Sickness Additional Past Anesthesia/Blood Transfusion Reaction / Comm: STATES WAS TOLD "BLOOD TAKES A LONG TIME TO CLOT". Pt has received blood in past without reaction. Smoking Status: Former smoker - Past Family History Mother Family Medical History: Cancer Additional Family Medical History / Comment(s): Mother of pancreatic cancer. Father Family Medical History: Coronary Artery Disease (CAD), CVA/TIA, Myocardial Infarction ([place]) Additional Family Medical History / Comment(s): CABG. Father is Medications and Allergies Home Medications Medication Instructions Recorded Confirmed Type Cholecalciferol (Vitamin D3) 4,000 unit PO DAILY 08/17/17 10/26/18 History [Vitamin D3] ALPRAZolam [Xanax] 0.5 mg PO DAILY PRN 10/26/18 10/26/18 History Calcium Carbonate [Tums] 500 mg PO TID PRN 10/26/18 10/26/18 History Venlafaxine HCl [Effexor XR] 75 mg PO DAILY 10/26/18 10/26/18 History Allergies Allergy/AdvReac Type Severity Reaction Status Date / Time erythromycin base Allergy Unknown Verified 10/26/18 08:18 minocycline [From Minocin] Allergy Unknown Verified 10/26/18 08:18 ofloxacin [From Floxin] Allergy Unknown Verified 10/26/18 08:18 Physical Exam Vitals: Vital Signs Temp Pulse Pulse Resp BP BP Pulse Ox 10/26/18 17:49 98.0 F 10/26/18 16:00 73 18 10/26/18 15:51 98.1 F 73 18 128/70 98 10/26/18 12:34 71 18 10/26/18 12:05 98.5 F 71 18 150/85 97 10/26/18 11:24 97.9 F 80 18 128/73 97 10/26/18 09:17 98.6 F 86 18 151/77 100 10/26/18 07:21 98.3 F 97 18 139/85 99 Intake and Output 10/26/18 10/26/18 10/26/18 06:59 14:59 22:59 Other: Voiding Method Toilet Toilet Weight 93 kg On physical examination, patient appears comfortable in no apparent distress. HEAD: Normocephalic, atraumatic. EYES: No scleral icterus. No conjunctival injection. MOUTH: No lesions, tongue midline. NECK: Trachea midline, no gross abnormalities. CHEST: Clear to auscultation with no wheezing or rhonchi appreciated. HEART: Regular rate and rhythm. ABDOMEN: Soft, obese. Bowel sounds are positive. No organomegaly. No guarding or rigidity. EXTREMITIES: No pedal edema. SKIN: No rashes, no jaundice. NEUROLOGIC: Alert and oriented x3. No focal deficits. Results CBC & Chem 7: 10/26/18 08:08 10/26/18 08:08 Labs: Abnormal Lab Results - Last 24 Hours (Table) 10/26/18 10/26/18 10/26/18 Range/Units 08:08 08:08 09:12 WBC 11.1 H (3.8-10.6) k/uL Neutrophils # 8.4 H (1.3-7.7) k/uL Glucose 104 H (74-99) mg/dL Calcium 10.5 H (8.4-10.2) mg/dL Total Bilirubin 1.4 H (0.2-1.3) mg/dL Alkaline Phosphatase 129 H (38-126) U/L Urine Ketones 2+ H (Negative) Urine Blood Trace H (Negative) Ur Leukocyte Esterase Moderate H (Negative) Urine WBC 9 H (0-5) /hpf Urine Bacteria Rare H (None) /hpf Urine Mucus Rare H (None) /hpf Microbiology - Last 24 Hours (Table) 10/26/18 09:12 Urine Culture - Preliminary Urine,Voided CT scan - abdomen: report reviewed (computed tomography scan which showed fluid- filled small bowel with liquid in the right colon suggestive of a possible enteritis as well as left-sided diverticulosis. The patient also had findings of prior cholecystectomy and a slightly increased dilation of the pancreatic duct compared to prior studies. ) Assessment and Plan (1) Diarrhea Narrative/Plan: Acute diarrhea of unknown etiology likely represents a viral or bacterial enteritis, with patient denying any recent antibiotics, change in medications, sick contacts or unusual foods as triggers. Colonoscopy was performed in November 2017 and significant only for diverticulosis. Computed tomography scan was consistent with enteritis. Current Visit: Yes Status: Acute Code(s): R19.7 - DIARRHEA, UNSPECIFIED SNOMED Code(s): 34386006 (2) Abdominal pain Current Visit: Yes Status: Acute Code(s): R10.9 - UNSPECIFIED ABDOMINAL PAIN SNOMED Code(s): 74101722 (3) Dilated pancreatic duct Narrative/Plan: incidental finding of dilated pancreatic duct, slightly increased compared to prior study Current Visit: Yes Status: Acute Code(s): K86.89 - OTHER SPECIFIED DISEASES OF PANCREAS SNOMED Code(s): 643248015 Plan: Supportive care Will start liquid diet Continue Zofran as needed for nausea Stool studies ordered and pending Bentyl added as needed for abdominal cramping Continue to monitor symptoms Thank you for allowing us to participate in the care of the patient we will continue to follow
[2018-10-27] MEDS ORDERED: ACETAMINOPHEN TAB 325 MG TAB PO PRN (03:31)
[2018-10-27] MEDS: VENLAFAXINE HCL ER 75 MG CAP PO SCH (08:11)
[2018-10-27] MEDS: ENOXAPARIN 40 MG/0.4 ML SYRINGE SQ SCH (08:11)
[2018-10-27] MEDS: PANTOPRAZOLE 40 MG/10 ML VIAL IVP SCH (08:11)
[2018-10-27] MEDS: CHOLECALCIFEROL 1,000 UNIT TAB PO SCH (08:20)
[2018-10-27] MEDS: METOCLOPRAMIDE 5 MG/ML 2 ML VIAL IVP PRN ×2 (09:31→20:23)
--- NOTE | 2018-10-27 09:41 | P.PN ---
Subjective Progress Note Date: 10/27/18 Principal diagnosis: acute diarrhea 63 y/o admitted with acute diarrheal illness. 1 BM since last night; stool studies sent. Afebrile. Feels better. Mild abdominal discomfort. No emesis. Tolerating clears. Objective - Vital Signs Vital signs: Vital Signs Temp 98.3 F 10/27/18 07:10 Pulse 70 10/27/18 08:00 Resp 18 10/27/18 08:00 BP 135/75 10/27/18 07:10 Pulse Ox 98 10/27/18 07:10 Intake & Output 10/26/18 10/27/18 10/27/18 18:59 06:59 18:59 Weight 93 kg 93 kg Other: Voiding Method Toilet Toilet Toilet # Voids 2 - Exam General appearance: The patient is alert, oriented, in no acute distress. HET: Head is normocephalic and atraumatic. Pupils are equal and reactive. Oropharynx is clear without lesions. Neck: Supple without lymphadenopathy. Trachea midline. Heart: S1 S2. Regular rate and rhythm. Lungs: No crackles or wheezes are heard. Abdomen: Soft, nontender, nondistended with bowel sounds. No peritoneal signs. No palpable organomegaly or masses. Extremities: Normal skin color and turgor. No cyanosis, rash, ulceration, clubbing, or edema. Radial and pedal pulses are 2/4 bilaterally. Neurological: No focal deficits. Strength and sensation are grossly intact. - Labs CBC & Chem 7: 10/26/18 08:08 10/26/18 08:08 Labs: Abnormal Lab Results - Last 24 Hours (Table) 10/26/18 Range/Units 09:12 Urine Ketones 2+ H (Negative) Urine Blood Trace H (Negative) Ur Leukocyte Esterase Moderate H (Negative) Urine WBC 9 H (0-5) /hpf Urine Bacteria Rare H (None) /hpf Urine Mucus Rare H (None) /hpf Microbiology - Last 24 Hours (Table) 10/26/18 09:12 Urine Culture - Preliminary Urine,Voided Assessment and Plan (1) Diarrhea Narrative/Plan: Possible viral possible self limiting bacterial gastroneuritis. Current Visit: Yes Status: Acute Code(s): R19.7 - DIARRHEA, UNSPECIFIED SNOMED Code(s): 44413247 (2) Abdominal pain Current Visit: Yes Status: Acute Code(s): R10.9 - UNSPECIFIED ABDOMINAL PAIN SNOMED Code(s): 50364631 (3) Dilated pancreatic duct Current Visit: Yes Status: Acute Code(s): K86.89 - OTHER SPECIFIED DISEASES OF PANCREAS SNOMED Code(s): 107987937 Plan: 1. Continue symptomatic supportive measures. Advance diet as tolerated. Stool studies pending. We'll continue to follow with you. Assessment and plan a care discussed with Dr. Valente
[2018-10-27] MEDS: DICYCLOMINE 10 MG CAP PO PRN (10:23)
[2018-10-27 16:02] VITALS: BMI 31.1
[2018-10-27 18:12] LABS: Basophils # (A) 0.1 k/uL (0-0.2); Basophils % (A) 1 %; Eosinophils # (A) 0.1 k/uL (0-0.7); Eosinophils % (A) 1 %; HCT 37.4 % (34.0-46.0); HGB 12.4 gm/dL (11.4-16.0); Lymphocytes % (A) 23 %; MCH 31.3 pg (25.0-35.0); MCHC 33.1 g/dL (31.0-37.0); MCV 94.6 fL (80.0-100.0); Mean Platelet Volume 7.4; Monocytes # (A) 0.6 k/uL (0-1.0); Monocytes % (A) 7 %; Neutrophils # (A) 5.7 k/uL (1.3-7.7); Neutrophils % (A) 65 %; Platelet Count 229 k/uL (150-450); RBC 3.95 m/uL (3.80-5.40); RDW 12.5 % (11.5-15.5); WBC 8.8 k/uL (3.8-10.6)
[2018-10-27 18:29] LABS: ALT 50 U/L (9-52); AST 29 U/L (14-36); Albumin 3.7 g/dL (3.5-5.0); Alkaline Phosphatase 105 U/L (38-126); Anion Gap 8 mmol/L; Blood Urea Nitrogen 10 mg/dL (7-17); Calcium 9.4 mg/dL (8.4-10.2); Carbon Dioxide 23 mmol/L (22-30); Chloride 108 mmol/L (98-107); Glucose 90 mg/dL (74-99); Potassium 4.2 mmol/L (3.5-5.1); Sodium 139 mmol/L (137-145); Total Bilirubin 1.4 mg/dL (0.2-1.3); Total Protein 6.3 g/dL (6.3-8.2)
--- NOTE | 2018-10-27 18:33 | PN ---
PROGRESS NOTE DATE OF SERVICE: 10/27/2018 This 63-year-old woman who was admitted with abdominal pain, nausea, vomiting, diarrhea, had acute gastroenteritis. The patient is feeling slightly better. Gastroenterology is following the patient. No chest pain. No palpitations. No fever. PHYSICAL EXAMINATION: Alert and oriented x3. Pulse 79, blood pressure 150/80, respiration 18, temperature 99 degrees, pulse ox 98% on room air. HEENT: Conjunctivae normal. NECK: No jugular venous distention. CARDIOVASCULAR SYSTEM: S1, S2 muffled. RESPIRATORY SYSTEM: Breath sounds diminished at the bases. No rhonchi. No crackles. ABDOMEN: Soft. Mild diffuse discomfort. No guarding. No rigidity. No mass palpable. LEGS: No edema. No swelling. NERVOUS SYSTEM: No focal deficit. LABS: WBC 11.1, hemoglobin 13.9. Total bilirubin is 1.4. C difficile is negative. ASSESSMENT: 1. Abdominal pain, nausea, vomiting, diarrhea; possible acute gastroenteritis. 2. Increased white count. 3. Increased calcium. 4. Dehydration. 5. History of sleep apnea. 6. Chronic intermittent abdominal pain. 7. History of diverticulitis. 8. Diverticulosis on the CT scan with no evidence of diverticulitis. 9. Mitral valve regurgitation. 10.Bowel resection. 11.Cholecystectomy. 12.History of degenerative joint disease. 13.History of anxiety, depression. 14.History of nicotine dependence. RECOMMENDATIONS AND DISCUSSION: I recommend to continue current medication, continue with symptomatic treatment. Otherwise, advance diet. Closely follow with Gastroenterology. Guarded prognosis. Further recommendations to follow. MMODL / IJN: [id number] /
[2018-10-28 07:46] LABS: Basophils # (A) 0.1 k/uL (0-0.2); Basophils % (A) 1 %; Eosinophils # (A) 0.1 k/uL (0-0.7); Eosinophils % (A) 1 %; HGB 12.5 gm/dL (11.4-16.0); Lymphocytes # (A) 1.6 k/uL (1.0-4.8); Lymphocytes % (A) 17 %; MCH 31.8 pg (25.0-35.0); MCHC 33.7 g/dL (31.0-37.0); MCV 94.3 fL (80.0-100.0); Mean Platelet Volume 7.7; Monocytes # (A) 0.6 k/uL (0-1.0); Monocytes % (A) 7 %; Neutrophils # (A) 6.7 k/uL (1.3-7.7); Neutrophils % (A) 71 %; Platelet Count 232 k/uL (150-450); RBC 3.93 m/uL (3.80-5.40); RDW 12.6 % (11.5-15.5); WBC 9.5 k/uL (3.8-10.6)
[2018-10-28] MEDS: METOCLOPRAMIDE 5 MG/ML 2 ML VIAL IVP PRN (08:13)
[2018-10-28] MEDS: PANTOPRAZOLE 40 MG/10 ML VIAL IVP SCH (08:13)
[2018-10-28] MEDS: ENOXAPARIN 40 MG/0.4 ML SYRINGE SQ SCH (10:01)
[2018-10-28] MEDS: CHOLECALCIFEROL 1,000 UNIT TAB PO SCH (10:01)
[2018-10-28] MEDS: VENLAFAXINE HCL ER 75 MG CAP PO SCH (10:01)
[2018-10-28] MEDS ORDERED: PROCHLORPERAZINE SUPPOSITORY 25 MG SUPP RECTAL PRN (11:48)
--- NOTE | 2018-10-28 11:48 | P.PN ---
Subjective Progress Note Date: 10/28/18 Principal diagnosis: acute diarrhea 63 y/o admitted with acute diarrheal illness. 2 BM watery nonbloody this am. C. diff negative. Afebrile. Feels better. Mild abdominal discomfort. No emesis. Tolerating light diet. Objective - Vital Signs Vital signs: Vital Signs Temp 98.8 F 10/28/18 08:00 Pulse 75 10/28/18 08:00 Resp 16 10/28/18 08:00 BP 145/76 10/28/18 08:00 Pulse Ox 97 10/28/18 08:00 Intake & Output 10/27/18 10/28/18 10/28/18 18:59 06:59 18:59 Intake Total 656 Balance 656 Weight 93 kg Intake: Oral 356 Other 300 Other: Voiding Method Toilet Toilet Toilet # Voids 2 - Exam General appearance: The patient is alert, oriented, in no acute distress. HET: Head is normocephalic and atraumatic. Pupils are equal and reactive. Oropharynx is clear without lesions. Neck: Supple without lymphadenopathy. Trachea midline. Heart: S1 S2. Regular rate and rhythm. Lungs: No crackles or wheezes are heard. Abdomen: Soft, nontender, nondistended with bowel sounds. No peritoneal signs. No palpable organomegaly or masses. Extremities: Normal skin color and turgor. No cyanosis, rash, ulceration, clubbing, or edema. Radial and pedal pulses are 2/4 bilaterally. Neurological: No focal deficits. Strength and sensation are grossly intact. - Labs CBC & Chem 7: 10/28/18 07:15 10/27/18 17:28 Labs: Abnormal Lab Results - Last 24 Hours (Table) 10/27/18 Range/Units 17:28 Chloride 108 H (98-107) mmol/L Total Bilirubin 1.4 H (0.2-1.3) mg/dL Microbiology - Last 24 Hours (Table) 10/26/18 09:12 Urine Culture - Final Urine,Voided Assessment and Plan (1) Diarrhea Narrative/Plan: Possible viral possible self limiting bacterial gastroneuritis. Current Visit: Yes Status: Acute Code(s): R19.7 - DIARRHEA, UNSPECIFIED SNOMED Code(s): 48913822 (2) Abdominal pain Current Visit: Yes Status: Acute Code(s): R10.9 - UNSPECIFIED ABDOMINAL PAIN SNOMED Code(s): 22665752 (3) Dilated pancreatic duct Current Visit: Yes Status: Acute Code(s): K86.89 - OTHER SPECIFIED DISEASES OF PANCREAS SNOMED Code(s): 552170762 Plan: 1. Continue symptomatic supportive measures. Advance diet as tolerated/BRAT. DC Reglan may be contributing to loose stools. Compazine suppository as needed for nausea. Additional stool studies pending. We'll continue to follow with you. Assessment and plan a care discussed with Dr. Valente
[2018-10-28] MEDS: DICYCLOMINE 10 MG CAP PO PRN (12:32)
[2018-10-28 15:43] VITALS: BP 157/80; PULSE 74; RESP 18; TEMP 99
[2018-10-28 16:19] LABS: Hepatitis A Antibody IgM Non-Reactive (Non-Reactive); Hepatitis B Core IgM Non-Reactive (Non-Reactive)
--- NOTE | 2018-10-28 19:32 | P.DS ---
Providers Date of admission: 10/26/18 10:51 Expected date of discharge: 10/28/18 Attending physician: Ciera Red Consults: 10/26/18 10:45 Consult Physician Routine Consulting Provider: Pierre Brooks Consult Reason/Comments: [email or web address] Do you want consulting provider notified?: Yes [facility] Course: Final Diagnoses: -Abdominal pain, nausea, vomiting, diarrhea, possible acute viral gastroenteritis. -Dehydration secondary to the above -Anxiety and stress, history of -Chronic intermittent abdominal pain in a patient with history of diverticulitis , small bowel resection, cholecystectomy -Diverticulosis per computed tomography scan without evidence of diverticulitis -Mitral valve regurgitation -History of nicotine dependence -Incidental finding of dilated pancreatic duct Hospital course: This a 63-year-old female admitted with abdominal pain, nausea vomiting diarrhea, dehydration, acute gastroenteritis. C. diff negative. Afebrile. Maintained on IV fluid hydration, bowel rest. Tolerating BRAT diet with improvement in abdominal pain nausea, diarrhea. Evaluated by GI. Significant clinical improvement. Cleared by GI for discharge. Patient is being discharged home today in stable condition with guarded prognosis. Exam: GENERAL: Alert and oriented 3, no acute distress.CV: Regular S1-S2.LUNGS: Essentially clear, bilateral bases diminished.ABD: Soft, nontender, nondistended , positive bowel sounds. NEURO: No focal deficits. The impression and plan of care has been dictated as directed. : I performed a history and examination of this patient, discussed the same with the dictator. I agree with the dictator's note ,documented as a scribe. Any additional findings or plans will be noted. Time taken: 35 minutes Patient Condition at Discharge: Stable Plan - Discharge Summary Discharge Rx Participant: No New Discharge Prescriptions: New Acetaminophen Tab [Tylenol] 650 mg PO Q4HR PRN tab PRN Reason: Fever And/ Or Pain Dicyclomine [Bentyl] 10 mg PO TID PRN #12 cap PRN Reason: Dyspepsia Omeprazole [PriLOSEC] 20 mg PO AC-BID #60 cap Continue Cholecalciferol (Vitamin D3) [Vitamin D3] 4,000 unit PO DAILY Venlafaxine HCl [Effexor XR] 75 mg PO DAILY Calcium Carbonate [Tums] 500 mg PO TID PRN PRN Reason: Gi Upset ALPRAZolam [Xanax] 0.5 mg PO DAILY PRN PRN Reason: Anxiety Discharge Medication List Cholecalciferol (Vitamin D3) [Vitamin D3] 4,000 unit PO DAILY 08/17/17 [History] ALPRAZolam [Xanax] 0.5 mg PO DAILY PRN 10/26/18 [History] Calcium Carbonate [Tums] 500 mg PO TID PRN 10/26/18 [History] Venlafaxine HCl [Effexor XR] 75 mg PO DAILY 10/26/18 [History] Acetaminophen Tab [Tylenol] 650 mg PO Q4HR PRN tab 10/28/18 [Rx] Dicyclomine [Bentyl] 10 mg PO TID PRN #12 cap 10/28/18 [Rx] Omeprazole [PriLOSEC] 20 mg PO AC-BID #60 cap 10/28/18 [Rx] Follow up Appointment(s)/Referral(s): Jet Daniel DO [Primary Care Provider] - 3 Days Kermit Valente MD [STAFF PHYSICIAN] - 2 Weeks Patient Instructions/Handouts: Abdominal Pain (ED) Activity/Diet/Wound Care/Special Instructions: Limited Activity until Follow Up with Physician due to Hospitalization Discharge Disposition: HOME SELF-CARE
== END 2018-10-28 18:15 | disposition home or self-care (01) ==
LOC: EC 07:19 → 1SOBS 10:51
PROVIDERS: ADMIT Hospitalist; ATTEND Hospitalist
DX: R10.9 Unspecified abdominal pain (principal); R19.7 Diarrhea, unspecified; R11.2 Nausea with vomiting, unspecified; E86.0 Dehydration; R68.83 Chills (without fever); D72.829 Elevated white blood cell count, unspecified; G89.29 Other chronic pain; K57.90 Diverticulosis of intestine, part unspecified, without perforation or abscess without bleeding; K86.89 Other specified diseases of pancreas; G47.33 Obstructive sleep apnea (adult) (pediatric); Z99.89 Dependence on other enabling machines and devices; I34.0 Nonrheumatic mitral (valve) insufficiency; F41.9 Anxiety disorder, unspecified; F32.9 Major depressive disorder, single episode, unspecified; M19.90 Unspecified osteoarthritis, unspecified site; N28.1 Cyst of kidney, acquired; E83.52 Hypercalcemia; K64.9 Unspecified hemorrhoids; Z79.899 Other long term (current) drug therapy; Z88.1 Allergy status to other antibiotic agents; Z85.828 Personal history of other malignant neoplasm of skin; Z90.49 Acquired absence of other specified parts of digestive tract; Z87.891 Personal history of nicotine dependence; Z82.3 Family history of stroke; Z82.49 Family history of ischemic heart disease and other diseases of the circulatory system; Z80.0 Family history of malignant neoplasm of digestive organs
CPT/HCPCS: 96372 ×2; 96376 ×4; 96361; 96374; 96375; 99285; 36415; 80053 ×2; 80074; 82150; 83690; 85025 ×3; 81001; 87324; 87798; 87086; 74177; G0378 ×3; J2270; J2765 ×3; J2405; J1650 ×2; C9113 ×3; Q9967

== ENCOUNTER → 2019-01-14 | Outpatient (CLI) | payer BC ==
--- NOTE | 2019-01-14 12:48 | MR ---
EXAMINATION TYPE: MR pancreas wo/w con DATE OF EXAM: 01/14/2019 COMPARISON: CT scan 10/26/2018 HISTORY: Abdomen pain CONTRAST: Standard multiplanar, multisequence MRI departmental protocol utilizing 9.5 mL intravenous Gadavist g adolinium contrast. FINDINGS: Cholecystectomy clips are present. Dilatation of bile duct up to 1.3 cm likely due to postcholecystec shahla status but appear stable. No focal liver lesion. Adrenal glands, kidneys, spleen are within normal limits. Pancreas mildly atrophic with mild dilatation of the main pancreatic duct at the level of the pancrea tic head and neck up to 4 mm. There is changes of colonic diverticulosis. Surgical area described by previous CT scan is not includ ed in the [id number]. The heart is enlarged and there is hypertrophic and degenerative change of the vertebral column. No pathologic adenopathy. Aorta of normal caliber. There is enhancement of the portal vein and mesent carmelita vasculature IMPRESSION: 1. THE BILE DUCT IS DILATED UP TO 1.3 CM. THIS MAY BE SECONDARY TO POSTCHOLECYSTECTOMY STATUS BUT EDUARDO EARS STABLE FROM PREVIOUS EXAM. 2. MILD DILATATION OF THE MAIN PANCREATIC DUCT IN THE PANCREATIC HEAD AND NECK REGION UP TO 4 MM IS S TABLE. NO OBSTRUCTING PANCREATIC MASS IS IDENTIFIED. Continued 6 MONTH FOLLOW-UP CT TO REASSESS.
== END | disposition home or self-care (01) ==
LOC: RADMRIMAIN 10:46
DX: K83.8 Other specified diseases of biliary tract (principal); K86.89 Other specified diseases of pancreas
CPT/HCPCS: 82565; 74183; 36415; A9585

== ENCOUNTER → 2019-02-08 | Outpatient (CLI) | payer BC ==
--- NOTE | 2019-02-08 10:22 | MM ---
Reason for exam: additional evaluation requested from abnormal screening. Last mammogram was performed less than 1 month ago. History: Patient is postmenopausal, history of other cancer, and had first child at age 32. Took estrogen for 1 year beginning at age 45. Took progesterone for 1 year beginning at age 45. Physical Findings: Nurse did not find any significant physical abnormalities on exam. MG 3D Work Up W/Cad RT Spot compression MLO, LM, and XCCL view(s) were taken of the right breast. Prior study comparison: February 03, 2019, bilateral MG 3d screening mammo w/cad. August 04, 2017, bilateral MG screening mammo w CAD. The breast tissue is heterogeneously dense. This may lower the sensitivity of mammography. No definite abnormality. These results were verbally communicated with the patient and result sheet given to the patient on 02/08/19. ASSESSMENT: Probably benign, BI-RAD 3 RECOMMENDATION: Follow-up diagnostic mammogram of the right breast in 6 months.
== END | disposition home or self-care (01) ==
LOC: RADMAMWWP 09:30
PROVIDERS: ATTEND Family Medicine
DX: R92.8 Other abnormal and inconclusive findings on diagnostic imaging of breast (principal)
CPT/HCPCS: 77061; 77065

== ENCOUNTER 2019-05-26 07:27 | Day surgery (SDC) | payer BC ==
[2019-05-24 12:33] VITALS: BMI 28.4
[2019-05-26 07:48] VITALS: RESP 16; TEMP 97
[2019-05-26] MEDS ORDERED: PROPOFOL 10 MG/ML 20 ML VIAL IV ONE (08:19)
[2019-05-26] MEDS ORDERED: LIDOCAINE 1% INJ 10MG/ML (20 ML MDV) ONE (08:19)
--- NOTE | 2019-05-26 08:43 | P.PCN ---
Date of Procedure: 05/26/19 Description of Procedure: BRIEF HISTORY: Patient is a 63-year-old, pleasant, male who presents for outpatient EGD for evaluation of symptoms of epigastric abdominal pain and nausea. The patient reports that she is been having pain burning pain in the right upper quadrant and epigastric region. She also has associated nausea. She reports no symptoms of breakthrough reflux but is on Prilosec therapy. She denies any dysphagia or odynophagia. She reports she previously had her gallbladder. Colonoscopy was earlier in the year. PROCEDURE PERFORMED: Esophagogastroduodenoscopy with biopsy. PREOPERATIVE DIAGNOSIS: Epigastric abdominal pain, nausea. ESTIMATED BLOOD LOSS: Minimal. IV sedation per anesthesia. PROCEDURE: After informed consent was obtained, the patient was brought into the endoscopy unit. IV sedation was administered by Anesthesia under continuous monitoring. Initially the Olympus GIF-190 video endoscope was inserted into the mouth. Esophagus intubated without any difficulty. It was gradually advanced into the stomach and duodenum and carefully examined. The bulb and the second part of the duodenum appeared normal, with biopsies taken. The scope at this time was withdrawn to the stomach, adequately insufflated with air, and upon careful examination, mucosa of the antrum, body, cardia and the fundus appeared normal except for some mild scattered erythema of the antrum and body suggestive of mild gastritis with biopsies taken. The scope was then withdrawn into the esophagus. The GE junction was located at 38 cm from the incisors, with a small 1 cm hiatal. The esophagus appeared normal. There were no erosions or ulcerations seen and the patient tolerated the procedure well. IMPRESSION: 1. Mild gastritis antrum and body, biopsied. 2. Small hiatal hernia. 3. Duodenal biopsy. 4. GE junction biopsy. RECOMMENDATIONS: The findings of this examination were discussed with the patient and her friend. Okay to resume diet. Continue current medical management. Await pathology from biopsies.
[2019-05-26 09:08] VITALS: BP 132/86; PULSE 65
== END 2019-05-26 09:23 | disposition home or self-care (01) ==
LOC: ORWHC2ENDO 07:27
PROVIDERS: ATTEND Internal Medicine
DX: K29.50 Unspecified chronic gastritis without bleeding (principal); K44.9 Diaphragmatic hernia without obstruction or gangrene; Z90.49 Acquired absence of other specified parts of digestive tract; E78.5 Hyperlipidemia, unspecified; F41.9 Anxiety disorder, unspecified; F32.9 Major depressive disorder, single episode, unspecified; M19.90 Unspecified osteoarthritis, unspecified site; G43.909 Migraine, unspecified, not intractable, without status migrainosus; N28.1 Cyst of kidney, acquired; R31.9 Hematuria, unspecified; I34.0 Nonrheumatic mitral (valve) insufficiency; R00.2 Palpitations; G47.33 Obstructive sleep apnea (adult) (pediatric); Z87.891 Personal history of nicotine dependence; Z79.899 Other long term (current) drug therapy; Z88.1 Allergy status to other antibiotic agents; Z91.09 Other allergy status, other than to drugs and biological substances
CPT/HCPCS: 43239; 88305; J2001; J2704

== ENCOUNTER → 2019-07-19 | Outpatient (CLI) | payer BC ==
--- NOTE | 2019-07-19 11:38 | CT ---
EXAMINATION TYPE: CT abdomen pelvis w con DATE OF EXAM: 07/19/2019 HISTORY: Abnormal diagnostic imaging CT DLP: 987.40mGycm Automated Exposure Control for Dose Reduction was Utilized. CONTRAST: CT scan of the abdomen and pelvis is performed with IV Contrast, patient injected with 100 ml mL of I sovue 300. COMPARISON: CT abdomen and pelvis October 26, [address] August 17, 2017 MRI pancreas January. FINDINGS: LUNG BASES: No significant abnormality is appreciated. LIVER/GB: Cholecystectomy clips are redemonstrated. Stable mild dilatation of common bile duct or por ta hepatis up to 13 mm with gradual tapering towards the ampulla. PANCREAS: No significant abnormality is seen on current study. No obvious ductal dilatation is noted. SPLEEN: No significant abnormality is seen. ADRENALS: No significant abnormality is seen. KIDNEYS: Symmetric cortical medullary uptake and excretion without hydronephrosis seen bilaterally. BOWEL: Oral contrast reaches level of the terminal ileum making evaluation of the colon slightly subo ptimal. No suspicious small or large bowel dilatation. Normal-appearing appendix inferior to cecum. S urgical sutures at level sigmoid colon axial Image 69. Some adjacent diverticula are seen proximal to this in the left and sigmoid colon. No CT evidence for acute diverticulitis. UTERUS/ADNEXA: Scattered pelvic phleboliths. Anteverted uterus. LYMPH NODES: No greater than 1cm abdominal or pelvic lymph nodes are appreciated. OSSEOUS STRUCTURES: Mild to moderate disc space narrowing L3-L4 and L5-S1 levels. Some prominent spur ring in the lower thoracic spine anteriorly sagittal image 69. OTHER: No significant additional abnormality is seen. IMPRESSION: Stable mild extrahepatic biliary dilatation without intrapelvic biliary dilatation. No ob vious suspicious pancreatic ductal dilatation on current study. No suspicious new or acute findings a re present.
== END ==
LOC: RADCTMAIN 07:34
PROVIDERS: ATTEND Internal Medicine Gastroenterology
DX: K83.8 Other specified diseases of biliary tract (principal)
CPT/HCPCS: 74177; Q9967

== ENCOUNTER → 2019-08-22 | Outpatient (CLI) | payer BC ==
--- NOTE | 2019-08-22 11:27 | MM ---
Reason for exam: additional evaluation requested from prior study. Last mammogram was performed 6 months ago. History: Patient is postmenopausal, history of other cancer, and had first child at age 32. Took estrogen for 1 year beginning at age 45. Took progesterone for 1 year beginning at age 45. Physical Findings: Nurse did not find any significant physical abnormalities on exam. MG 3D Diag Mammo W/Cad RT CC and MLO view(s) were taken of the right breast. Prior study comparison: February 08, 2019, right breast MG 3d work up w/cad RT. February 03, 2019, bilateral MG 3d screening mammo w/cad. The breast tissue is extremely dense which could obscure a lesion on mammography. There is a persistent right upper outer quadrant 5mm mass 8.5-9.5cm from nipple. These results were verbally communicated with the patient and result sheet given to the patient on 08/22/19. ASSESSMENT: Incomplete: need additional imaging evaluation, BI-RAD 0 RECOMMENDATION: Ultrasound of the right breast. (upper outer quadrant)
--- NOTE | 2019-08-22 11:30 | USB ---
Reason for exam: additional evaluation requested from abnormal screening. History: Patient is postmenopausal, history of other cancer, and had first child at age 32. Took estrogen for 1 year beginning at age 45. Took progesterone for 1 year beginning at age 45. US Breast Limited RT Right limited breast ultrasound including focal area of concern, retroareolar and axilla demonstrates a 0.2 x 0.3 x 0.1cm oval, cystic lesion at 10 o'clock. No sonographic correlate to mammographic mass. 3D stereotactic biopsy recommended. These results were verbally communicated with the patient and result sheet given to the patient on 08/22/19. ASSESSMENT: Suspicious, BI-RAD 4 RECOMMENDATION: Stereotactic core biopsy of the right breast. (3D) Called Dr. Daniel's office with mammographic findings. PRELIMINARY REPORT CALLED AND FAXED TO DR. DANIEL ON 08/22/19.
== END | disposition home or self-care (01) ==
LOC: RADMAMWWP 08:52
PROVIDERS: ATTEND Family Medicine
DX: N63.11 Unspecified lump in the right breast, upper outer quadrant (principal); R92.8 Other abnormal and inconclusive findings on diagnostic imaging of breast
CPT/HCPCS: 77061; 77065

== ENCOUNTER → 2020-05-11 | Outpatient (CLI) | payer BC, MEDICARE ==
--- NOTE | 2020-05-11 11:56 | MM ---
Reason for exam: follow-up at short interval from prior study. Last mammogram was performed 9 months ago. History: Patient is postmenopausal, history of other cancer, and had first child at age 32. Took estrogen for 1 year beginning at age 45. Took progesterone for 1 year beginning at age 45. Physical Findings: Nurse did not find any significant physical abnormalities on exam. MG 3D Diag Mammo W/Cad KATELYN Bilateral CC and MLO view(s) were taken. Prior study comparison: August 22, 2019, right breast MG 3d diag mammo w/cad RT. February 08, 2019, right breast MG 3d work up w/cad RT. February 03, 2019, bilateral MG 3d screening mammo w/cad. August 04, 2017, bilateral MG screening mammo w CAD. The breast tissue is heterogeneously dense. This may lower the sensitivity of mammography. No significant new findings when compared with previous films. These results were verbally communicated with the patient and result sheet given to the patient on 05/11/20. ASSESSMENT: Benign, BI-RAD 2 RECOMMENDATION: Routine screening mammogram of both breasts in 1 year.
== END | disposition home or self-care (01) ==
LOC: RADMAMWWP 10:48
PROVIDERS: ATTEND Family Medicine
DX: N63.10 Unspecified lump in the right breast, unspecified quadrant (principal)
CPT/HCPCS: 77066; G0279; 77062